=== PATIENT | male | born 1945 | race African-American/Black ===

== ENCOUNTER 2018-04-10 14:19 | Emergency (ER) | payer OTHER ==
[~2018-04-10] VITALS: Ht 180.3 cm; Wt 96.2 kg
[~2018-04-10 14:19] MED LIST: ASPI-482 PO; ATOR20TA58 PO; CHOL200059 PO; IRBE150T3 PO; NAPR-514 PO; TADA20TA PO; TAMS0.4C2 PO
[2018-04-10 15:22] VITALS: BP 168/90
[2018-04-10] MEDS ORDERED: TETRACAINE 0.5% OPHTH SOLUTION 4ML BOTTLE. OD ONE (15:30)
[2018-04-10] MEDS ORDERED: FLUORESCEIN OPHTH TEST STRIP. OD ONE (15:30)
[2018-04-10] MEDS ORDERED: AMOX1TAB61 PO (15:49)
[2018-04-10] MEDS ORDERED: OLOP5DRO EACHEYE (15:49)
--- NOTE | 2018-04-10 15:50 | PHYS DOC ---
Past Medical History Past Medical History: No Pertinent History Alcohol Use: None Drug Use: None Adult General Chief Complaint Chief Complaint: EYE PROBLEMS HPI HPI Patient is a 72 year old male who presents with swelling and itching around his right eye. The patient states that he was working in his garage 4 days ago. 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 He states that his eye started itching shortly after that. He does not remember any injury to the eye. He has been using cold compresses to help keep the swelling down. He is having some drainage from that eye as well that is greenish yellow in color. He does not wear contacts. He denies changes in his visual acuity. Review of Systems Review of Systems Constitutional: Denies fever or chills [] Eyes: See history of present illness HENT: Denies nasal congestion or sore throat [] Respiratory: Denies cough or shortness of breath [] Cardiovascular: No additional information not addressed in HPI [] Neurologic: Denies headache, focal weakness or sensory changes [] Endocrine: Denies polyuria or polydipsia [] All other systems were reviewed and found to be within normal limits, except as documented in this note. Current Medications Current Medications Current Medications Medications (Trade) Dose Ordered Sig/Sophie Start Time Stop Time Status Last Admin Dose Admin Fluorescein Sodium (Ful-Kala) 1 strip 1X ONCE 04/10/18 15:30 04/10/18 15:31 DC 04/10/18 15:30 1 STRIP Tetracaine HCl (Tetracaine) 1 drop 1X ONCE 04/10/18 15:30 04/10/18 15:31 DC 04/10/18 15:30 1 DROP Allergies Allergies Allergies Coded Allergies Type Severity Reaction Last Updated Verified No Known Drug Allergies 09/09/13 No Physical Exam Physical Exam Constitutional: Well developed, well nourished, no acute distress, non-toxic appearance. [] HENT: Normocephalic, atraumatic, bilateral external ears normal, oropharynx moist, no oral exudates, nose normal. [] Eyes: PERRLA, EOMI, right conjunctiva erythematous, and initial of discharge noted to the right eye discharge. [] Neck: Normal range of motion, no tenderness, supple, no stridor. [] Cardiovascular:Heart rate regular rhythm, no murmur [] Lungs & Thorax: Bilateral breath sounds clear to auscultation [] Neurologic: Alert and oriented X 3, normal motor function, normal sensory function, no focal deficits noted. [] Psychologic: Affect normal, judgement normal, mood normal. [] Current Patient Data Vital Signs Vital Signs Date Time Temp Pulse Resp B/P (MAP) Pulse Ox O2 Delivery O2 Flow Rate FiO2 04/10/18 15:22 99.0 73 18 168/90 (116) 96 Room Air 99.0 EKG EKG [] Radiology/Procedures Radiology/Procedures [] Course & Med Decision Making Course & Med Decision Making Pertinent Labs and Imaging studies reviewed. (See chart for details) []With lamp examination did not show any gross uptake. The patient will be covered with antibiotic therapy in case he is developing periorbital cellulitis. He is also being given eyedrops to help control itching and reduce inflammation. He is to follow-up with ophthalmology in 2 days if not improving. He is to return the emergency department if worsening. He is in agreement with this plan. Dragon Disclaimer Dragon Disclaimer This electronic medical record was generated, in whole or in part, using a voice recognition dictation system. Departure Departure Impression: Primary Impression: Periorbital edema of right eye Disposition: HOME, SELF-CARE Condition: STABLE Referrals: KOYR ENGLE MD (PCP) Patient Instructions: Eyedrops, Periorbital Cellulitis Additional Instructions: Medications as prescribed. If your eye worsens follow-up with your environmental aid or return to the emergency department immediately. Scripts Olopatadine Hcl (PATANOL) 5 Ml Drops 1 DROP EACHEYE BID, #5 ML 1 Refill Prov: TOM BARTLETT APRN 04/10/18 Amoxicillin/Potassium Clav (AUGMENTIN 875-125 TABLET) 1 Each Tablet 1 TAB PO BID, #20 TAB Prov: TOM BARTLETT APRN 04/10/18 TOM BARTLETT APRN Apr 10, 2018 15:50
== END 2018-04-10 16:04 | disposition home or self-care (01) ==
LOC: ER 14:19
DX: H05.221 Edema of right orbit (principal)
CPT/HCPCS: 99283

== ENCOUNTER → 2020-06-28 | Outpatient (CLI) | payer OTHER ==
[~2020-06-28] MED LIST changes: +AMOX1TAB61 PO; +IRBE150T21 PO; -IRBE150T3 PO; +OLOP5DRO EACHEYE
--- NOTE | 2020-06-28 12:17 | KCIC ---
EXAM: CT coronary artery calcium screening; radiologist over read. HISTORY: Cardiac or screening. Hyperlipidemia. TECHNIQUE: Computed tomographic images of the chest were obtained without contrast. Multiplanar refor matting was performed. *One or more of the following individualized dose reduction techniques were utilized for this examina tion: 1. Automated exposure control. 2. Adjustment of the mA and/or kV according to patient size. 3. Use of iterative reconstruction technique. COMPARISON: 06/22/2010. FINDINGS: The heart is normal in size. The visualized aorta is normal in caliber. There is no lymphad enopathy. There is no infiltrate, pleural effusion or pneumothorax. There is basilar atelectasis. The re is a 1.1 cm nodule abutting the anterior superior mediastinum. This contains a punctate calcificat ion. There is calcified atherosclerotic plaque involving the coronary arteries. There is no suspiciou s osseous lesion or acute finding involving the upper abdomen. Coronary artery calcium score: Left main artery - 0 Left anterior descending - 406.7 Left circumflex - 0 Right coronary artery - 178.5 Posterior descending artery - 0 TOTAL = 585.2 IMPRESSION: 1. Coronary artery calcium score of 585.2. There is significant atherosclerotic plaque. 2. 1.1 cm superior medial right paramediastinal nodule. This minimally changed compared to a CT perfo rmed 05/26/2010, allowing for differences in technique. The slow interval change favors benignity. How ever, given the size of this nodule and differences in technique compared with prior study, follow-up in 6 months is recommended. Electronically signed by: Nataly Ramsey MD (06/28/2020 12:14 PM) [id number]
== END ==
LOC: KCIC CT 11:02
PROVIDERS: ATTEND Family Medicine
DX: Z13.6 Encounter for screening for cardiovascular disorders (principal); E78.5 Hyperlipidemia, unspecified; J98.11 Atelectasis; J98.59 Other diseases of mediastinum, not elsewhere classified
CPT/HCPCS: 75571

== ENCOUNTER → 2020-07-18 | Outpatient (CLI) | payer MEDICARE ==
--- NOTE | 2020-07-18 16:18 | KCIC ---
EXAM: CT CHEST WITHOUT CONTRAST HISTORY: Pulmonary nodules on calcium score COMPARISON: CT calcium score 06/28/2020 TECHNIQUE: Helical CT of the chest performed without contrast. Coronal and sagittal reformats were o btained. One or more of the following individualized dose reduction techniques were utilized for this examinat ion: 1. Automated exposure control 2. Adjustment of the mA and/or kV according to patient size 3. Use of iterative reconstruction technique. FINDINGS: Thyroid gland and thoracic inlet: There is an 8 mm hypodense nodule in the right thyroid lobe. Heart and great vessels: Heart is normal in size. There are coronary artery calcifications. Thoracic aorta is normal in caliber. Mediastinum and pat: No lymphadenopathy. Lungs and pleura: The 1 cm nodule in the right upper lobe abutting the anterior mediastinum is unchan ged. The lungs are otherwise clear. No pleural effusion. Chest wall and axillae: No axillary lymphadenopathy. Upper abdomen: Unremarkable. Bones: No acute osseous abnormality. IMPRESSION: Unchanged 1 cm nodule in the right upper lobe abutting the anterior mediastinum. Consider follow-up CT in 3-6 months to ensure stability. According to Fleischner Society Guidelines for solid pulmonary nodules (Radiology 2017; 000:1?16): In a low risk patient: <6mm - No follow up required. 6-8mm - CT at 6-12 months, then consider CT at 18-24 months >8mm - Consider CT, PET/CT, or tissue sampling at 3 months Nodules <6 mm do not require routine follow-up, but certain patients at high risk with suspicious nod ule morphology, upper lobe location, or both may warrant 12-month follow-up In a high risk patient (history of smoking or other known risk factors): <6mm - Optional 12 month follow up. 6-8mm - CT at 6-12 months, then CT at 18-24 months >8mm - Consider CT, PET/CT, or tissue sampling at 3 months Nodules <6 mm do not require routine follow-up, but certain patients at high risk with suspicious nod ule morphology, upper lobe location, or both may warrant 12-month follow-up 1. Electronically signed by: Nilsa Briones MD (07/18/2020 4:16 PM) [id number]
== END ==
LOC: KCIC CT 09:00
PROVIDERS: ATTEND Internal Medicine Pulmonary Disease
DX: R91.1 Solitary pulmonary nodule (principal); I25.10 Atherosclerotic heart disease of native coronary artery without angina pectoris
CPT/HCPCS: 71250

== ENCOUNTER → 2020-08-16 | Outpatient (CLI) | payer MEDICARE ==
--- NOTE | 2020-08-16 16:02 | RAD ---
MR#: [id number] Date of Study: 08/16/2020 Ordering Physician: NICKOLAS ARIAS, Referring Physician: ARNULFO FARLEY Tech: RUKHSANA Chen, ADEEL (R) (N) APPROVED REPORT Test Type: Exercise Stress Nurse/Tech: DAILY Romero Test Indications: CAD Cardiac History: CAD, HTN SEE EMR Medications: SEE EMR Medical History: SEE EMR Resting ECG: ARTIFACT NOTED, SR W/ PVC'S Resting Heart Rate: 71 bpm Resting Blood Pressure: 141/68mmHg Pretest Chest Pain: No chest pain Nurse/Tech Notes S1S2, LUNGS CTA, DENIED CP OR SOA, VSS. Consent: The procedure was explained to the patient in lay terms. Informed consent was witnessed. Jasson eout was entered into [employer]. History and Stress Test performed by RT Augusto (Mary) (N) Stress Symptoms PT TOLERATED THE TREADMILL TEST WELL. ONLY COMPLAINT WAS OF DIFFICULTY BREATHING BECAUSE OF THE MASK. POST EXERCISE Reason for Termination: Reached target heart rate Target HR: 122 Max HR: 135 bpm 110% of Maximum Predicted HR: 122 bpm Exercise duration: 5:07 min:sec, 2 Stage Exercise capacity: 7.0METs Max Blood Pressure: 199/77mmHg Blood Pressure response to exercise: Normal blood pressure response during stress. Heart Rate response to exercise: WNL Chest Pain: No. Arrhythmia: No. NO SIGNIFICANT CHANGES NOTED TO EKG ST Change: No. INTERPRETATION Stress EKG Conclusion: No evidence of stress induced EKG changes. Imaging Protocol IMAGE PROTOCOL: Rest Tc-99m/stress Tc-99m 1 day Rest: Stress: Viability: Radiopharm.Tc99m [id number] Sestamibi Dose10.6mCi 33mCi Img Date 08/16/2020 08/16/2020 Inj-Img [id number]. 60min. Rest Admin Site:IV - Left WristAdministrator:RUKHSANA Chen, ARRT (R)(N) Stress Admin Site: IV - Left WristAdministrator: RT Sebastián Casas)(N) STRESS DATA End Diast. Vol.70.0mlAv. Heart Rate81.0bpm End Syst. Vol.11.0mlCO Index BSA0.0L/min Myocardial Dehv536.0gEject. Pxkmwupp24.0% Stress Rates Pk. Fill Rate3.31EDV/secLVtime Pk. Fill 218.75msec Pk. Empty Rate5.50ESV/secLVtime Pk. Onheu969.99msec 1/3 Pk. Fill1.73EDV/sec Stress Scores Regional WT0.00Summed WT4.00 Regional WM0.00Summed WM0.00 The rest and stress images show normal perfusion, normal contraction and thickening. LV Perf. Quant 17 Seg. SSS0.00 17 Seg. SRS0.00 17 Seg. SDS0.00 Stress Defect Extent (% LAD)0.00Rest Defect Extent (% LAD)0.00Rev. Defect Extent (% LAD)0.00 Stress Defect Extent (% LCX) 0.00Rest Defect Extent (% LCX)0.00Rev. Defect Extent (% LCX)0.00 Stress Defect Extent (% RCA)0.00Rest Defect Extent (% RCA)0.00Rev. Defect Extent (% RCA)0.00 Stress Defect Extent (% GUILLERMO)0.00Rest Defect Extent (% GUILLERMO)0.00Rev. Defect Extent (% GUILLERMO)0.00 Other Information Quality:Fair Risk Assessment: Low Risk Conclusion 1. Gross normal stress EKG, limited due to motion artifact but no clear evidence of ischemia. 2. Below average exercise capacity. 3. Normal perfusion at stress/rest. 4. Normal EF at > 60% 5. Low risk study overall. Signed by : Ellis Monroe, Electronically Approved : 08/16/2020 16:02:29
== END ==
LOC: NM 10:20
PROVIDERS: ATTEND Internal Medicine Cardiovascular Disease
DX: I25.10 Atherosclerotic heart disease of native coronary artery without angina pectoris (principal); I10 Essential (primary) hypertension
CPT/HCPCS: 78452; 93017; A9500

== ENCOUNTER → 2020-12-23 | Outpatient (CLI) | payer MEDICARE ==
--- NOTE | 2020-12-23 11:49 | KCIC ---
CT of the chest without contrast. 12/23/2020 Indication: [Follow-up pulmonary nodule] Comparison study: [CT of the chest July 18, 2020] Technique: Multidetector CT imaging of the chest was performed following the administration of intrav enous contrast. Multiple reconstructions including 3-D maximum intensity projection reconstructions w ere created on an independent workstation and reviewed. Findings: Stable 1 cm nodule identified within the anterior mediastinum or abutting it in the right upper lobe. Punctate focus of calcification noted. No other nodules are identified. Heart size is normal. No significant pericardial effusion is seen. Limited noncontrast enhanced evalu ation the mediastinum demonstrates other scattered. There is a mildly prominent subcarinal lymph node with a 1 cm short axis diameter. No focal consolidation or infiltrate is seen. No pneumothorax or pl eural effusion is seen. No acute osseous abnormality is identified. Limited visualization of the uppe r abdomen demonstrates no acute abnormality. Impression: 1. Stable 1 cm anterior mediastinal lymph node versus is right upper lobe nodule with punctate calcif ication. Mildly prominent subcarinal lymph node with short axis diameter of 1 cm. Given history of n on-Hodgkin's lymphoma, PET/CT is recommended for further evaluation. 2. No other acute cardiopulmonary process is identified CT DOSING PQRS STATEMENT: One or more of the following individualized dose reduction techniques were utilized for this examinat ion: 1. Automated exposure control 2. Adjustment of the mA and/or kV according to patient size 3. Use of iterative reconstruction technique Electronically signed by: Naveed Duron MD (12/23/2020 11:47 AM) [id number]
== END ==
LOC: KCIC CT 10:25
PROVIDERS: ATTEND Internal Medicine Pulmonary Disease
DX: R91.1 Solitary pulmonary nodule (principal); Z85.72 Personal history of non-Hodgkin lymphomas
CPT/HCPCS: 71250

== ENCOUNTER → 2021-01-24 | Outpatient (CLI) | payer MEDICARE ==
[2021-01-24 12:12] LABS: BASO % 1 % (0-3); EOS # 0.1 x10^3/uL (0.0-0.7); EOS % 2 % (0-3); HEMATOCRIT 46.1 % (39.0-53.0); HEMOGLOBIN 15.9 g/dL (13.0-17.5); LYMPH # 1.3 x10^3/uL (1.0-4.8); LYMPH % 36 % (24-48); MEAN CORPUSCULAR HEMOGLOBIN 30 pg (25-35); MEAN CORPUSCULAR HGB CONC 34 g/dL (31-37); MEAN CORPUSCULAR VOLUME 88 fL (79-100); MONO # 0.3 x10^3/uL (0.0-1.1); MONO % 9 % (0-9); NEUT # 1.9 x10^3/uL (1.8-7.7); NEUT % 52 % (31-73); PLATELET COUNT 124 x10^3/uL (140-400); RED BLOOD COUNT 5.22 x10^6/uL (4.30-5.70); RED CELL DISTRIBUTION WIDTH 13.8 % (11.5-14.5); WHITE BLOOD COUNT 3.7 x10^3/uL (4.0-11.0)
[2021-01-24 12:19] LABS: CALCIUM 8.8 mg/dL (8.5-10.1); CREATININE 1.2 mg/dL (0.7-1.3); POTASSIUM 4.1 mmol/L (3.5-5.1)
[2021-01-24 12:25] LABS: ALBUMIN 3.8 g/dL (3.4-5.0); ALBUMIN/GLOBULIN RATIO 1.2 (1.0-1.7); TOTAL BILIRUBIN 0.7 mg/dL (0.2-1.0); TOTAL PROTEIN 6.9 g/dL (6.4-8.2)
== END ==
LOC: ONCLAB 11:05
PROVIDERS: ATTEND Internal Medicine Hematology & Oncology
DX: C82.00 Follicular lymphoma grade I, unspecified site (principal)
CPT/HCPCS: 36415; 80053; 83615; 85025

== ENCOUNTER → 2021-08-04 | Outpatient (CLI) | payer MEDICARE ==
--- NOTE | 2021-08-04 12:24 | RAD ---
EXAM: Chest CT without intravenous contrast. HISTORY: Pulmonary nodule. TECHNIQUE: Computed tomographic images of the chest were obtained without contrast. Multiplanar refor matting was performed. *One or more of the following individualized dose reduction techniques were utilized for this examina tion: 1. Automated exposure control. 2. Adjustment of the mA and/or kV according to patient size. 3. Use of iterative reconstruction technique. COMPARISON: 12/23/2020 and 07/18/2020. FINDINGS: There has been slight interval decrease in the volume of a 10 x 7 mm nodule within the righ t anterior mediastinum or along the anterior medial right upper lobe pleura. There is a stable adjace nt punctate calcification. There is no infiltrate, pleural effusion or pneumothorax. The heart is nor mal in size. There is coronary artery calcification. There are stable nonspecific paratracheal, subca rinal and hilar lymph nodes. There is cholelithiasis. There is no acute finding involving the visualized upper abdomen. There is n o acute or suspicious osseous finding. IMPRESSION: 1. Slight decreased volume of a 10 x 7 mm nodule within the right anterior mediastinum or adjacent an terior medial right upper lobe pleural, previously measuring 10 x 10 mm on a study performed 12/23/2020 . This is more similar in appearance compared to the study performed 07/18/2020. The year of stability favors benignity. However, given a history of lymphoma, the possibility of a stable treated lymph no de is not excluded. 2. No acute pulmonary finding. 2. Cholelithiasis. Electronically signed by: Nataly Ramsey MD (08/04/2021 12:22 PM) [id number]
== END ==
LOC: CT 10:46
PROVIDERS: ATTEND Internal Medicine Pulmonary Disease
DX: R91.1 Solitary pulmonary nodule (principal); K80.20 Calculus of gallbladder without cholecystitis without obstruction; I25.10 Atherosclerotic heart disease of native coronary artery without angina pectoris
CPT/HCPCS: 71250